=== PATIENT | male | born 1990 | race Hispanic/Latino ===

== ENCOUNTER 2018-07-08 20:40 | Emergency (ER) | payer OTHER ==
[2018-07-08 23:19] VITALS: BP 165/89; PULSE 69; RESP 16; TEMP 98.6; O2SAT 98
--- NOTE | 2018-07-09 04:18 | ED PDOC ---
Lower Extremity Pain/Injury Time Seen by Provider: 07/09/18 00:30 Chief Complaint (Nursing): Lower Extremity Problem/Injury Chief Complaint (Provider): right foot fracture History Per: Patient History/Exam Limitations: no limitations Onset/Duration Of Symptoms: Hrs Current Symptoms Are (Timing): Still Present Additional History Per: Patient Additional Complaint(s): 28 y/o male presents for evaluation of right foot fracture sustained tonight. Patient states he was playing kickball and while running [place] his foot some how twisted and he heard a "crack". Patient states he went to [facility] and xray showed a fracture of his 5th metatarsal and was advised to come to the ED for further evaluation. Denies numbness/weakness right lower extremity Past Medical History Reviewed: Historical Data, Nursing Documentation, Vital Signs Vital Signs: Last Vital Signs Temp 98.6 F 07/08/18 23:16 Pulse 69 07/08/18 23:16 Resp 16 07/08/18 23:16 BP 165/89 H 07/08/18 23:16 Pulse Ox 98 07/08/18 23:16 Primary Care Provider: ROOSEVELT ALVARADO - Medical History PMH: HTN (hx, used to take medication, 4 years ago) - Surgical History Surgical History: No Surg Hx - Family History Family History: States: No Known Family Hx - Allergies Allergies/Adverse Reactions: Allergies Allergy/AdvReac Type Severity Reaction Status Date / Time No Known Allergies Allergy Verified 07/08/18 23:16 Review of Systems ROS Statement: Except As Marked, All Systems Reviewed And Found Negative Musculoskeletal: Positive for: Foot Pain (right) Physical Exam - Reviewed Nursing Documentation Reviewed: Yes Vital Signs Reviewed: Yes - Physical Exam Appears: Positive for: Well, Non-toxic, No Acute Distress Pulses-Dorsalis Pedis (L): 2+ Pulses-Dorsalis Pedis (R): 2+ Pulses-Post. Tibialis (L): 2+ Pulses-Post. Tibialis (R): 2+ Extremity: Positive for: Normal ROM, Capillary Refill (<3 sec b/l LE), Swelling (edema, ecchymosis dorsal right lateral foot; tender to palpate 5th metatarsal. Distal NV/motor intact) Neurological/Psych: Positive for: Awake, Alert, Oriented (x3) - ECG O2 Sat by Pulse Oximetry: 98 - Progress ED Course And Treament: Imaging reviewed from [facility]: + mid right 5th metatarsal fracture, comminuted, displaced Patient evaluated by Dr. Burns, podiatry resident on-call; splint applied Advised follow up in clinic today Patient educated on findings, advised to follow up as scheduled Advised BRENDA. rx ibuprofen given Patient presented with crutches, advised to continue Return precautions given Disposition - Clinical Impression Clinical Impression: Foot fracture, right - Patient ED Disposition Is Patient to be Admitted: No Counseled Patient/Family Regarding: Studies Performed, Diagnosis, Need For Followup, Rx Given - Disposition Disposition: Routine/Home Disposition Time: 03:30 Condition: STABLE
--- NOTE | 2018-07-09 12:24 | CP.PCM.CON ---
History of Present Illness - History of Present Illness History of Present Illness: Podiatry Consult Note - Dr. Rose 28M with previous history of HTN seen and evaluated in ED concerning right foot fracture. Patient states earlier today he was playing kickball and while he was running to [place] felt a "crack" in his foot. Patient states he presented to [facility] for evaluation and was found to have a right foot 5th metatarsal fracture, and was told to go to [facility] ED for further evaluation due to the fracture pattern. At present, patient reports pain in right foot is controlled. Denies any other injuries. Denies n/v/f/d/c/sob/becerra/cp. Offers no other complaints. PMH: HTN (was previously taking medications 4 years ago but has since stopped) PSH: denies FH: denies SH: social ETOH, denies tobacco/illicit drug use All: NKDA Review of Systems - Review of Systems All systems: reviewed and no additional remarkable complaints except (as per HPI) Past Patient History - Past Social History Smoking Status: Never Smoked - CARDIAC Hx Hypertension: Yes (hx, used to take medication, 4 years ago) - PSYCHIATRIC Hx Substance Use: No Meds Allergies/Adverse Reactions: Allergies Allergy/AdvReac Type Severity Reaction Status Date / Time No Known Allergies Allergy Verified 07/08/18 23:16 Physical Exam - Constitutional Appears: Non-toxic, No Acute Distress - Extremities Exam Additional comments: RLE focused: VASC: DP and PT pulses palpable 2/4. CFT <3 seconds to digits. Temperature gradient cool to cool. Pedal hair growth appreciated. Moderate nonpitting edema noted to dorsum of forefoot. NEURO: Light touch and protective sensation intact. DERM: No open lesions present. Hematoma formation dorsolateral forefoot. ORTHO: Pain on palpation noted surrounding 5th metatarsal. MMT 5/5 with pain present. No pain upon calf compression. - Neurological Exam Neurological exam: Alert, Oriented x3 - Psychiatric Exam Psychiatric exam: Normal Affect, Normal Mood Results - Vital Signs Recent Vital Signs: Last Vital Signs Temp 98.6 F 07/08/18 23:16 Pulse 69 07/08/18 23:16 Resp 16 07/08/18 23:16 BP 165/89 H 07/08/18 23:16 Pulse Ox 98 07/09/18 04:22 Assessment & Plan - Assessment and Plan (Free Text) Assessment: 28M with closed, displaced 5th metatarsal fracture Plan: Patient seen and evaluated Discussed with attending, Dr. Rose Right foot XR shows displaced 5th metatarsal fracture Discussed with patient due to fracture pattern, patient will need surgical intervention for correction of deformity; discussed with patient conservative vs. surgical options as well as associated risks, benefits, and complications. Patient agreeable to surgical intervention Posterior splint applied to RLE; patient to be NWB with crutch assistance RICE therapy Pain control per ED Patient to follow up with Dr. Rose in podiatry clinic this afternoon 07/09/18 to book for surgery Stable for dc per podiatry Thank you for the consult
== END 2018-07-09 03:35 | disposition home or self-care (01) ==
LOC: H.ER 20:40
DX: S92.901A Unspecified fracture of right foot, initial encounter for closed fracture (principal); X50.9XXA Other and unspecified overexertion or strenuous movements or postures, initial encounter; Y92.89 Other specified places as the place of occurrence of the external cause